=== PATIENT | female | born 1975 | race Caucasian/White ===

== ENCOUNTER 2017-07-22 12:44 | Inpatient (IN) | payer OTHER ==
[~2017-07-22] VITALS: Ht 157.5 cm; Wt 78.6 kg
[2017-07-22 14:24] LABS: BASOPHIL % 0.7 % (0-2); PLATELET COUNT 310 x10^3mcL (130-400); RED CELL DISTRIBUTION WIDTH 14.1 % (11.5-14.5)
[2017-07-22 14:34] LABS: CARBON DIOXIDE 28.6 mmol/L (21-32); CHLORIDE SERUM 101 mmol/L (98-107); CREATININE SERUM 0.5 mg/dL (0.6-1.0); GFR1 > 60 mL/min; GLUCOSE SERUM 86 mg/dL (74-106); POTASSIUM SERUM 3.6 mmol/L (3.5-5.1); SODIUM SERUM 138 mmol/L (136-145)
[2017-07-22 14:45] LABS: ALBUMIN 3.7 g/dL (3.4-5.0); ALKALINE PHOSPHATASE 78 U/L (46-116); ALT/SGPT 40 U/L (14-59); AMYLASE 38 U/L (25-115); AST/SGOT 28 U/L (15-37); BILIRUBIN TOTAL 0.32 mg/dL (0.20-1.00); HDL CHOLESTEROL 54 mg/dL (40-60); LIPASE 120 IU/L (73-393); T4(THYROXINE) 8.3 ug/dL (4.7-13.3); TOTAL PROTEIN, SERUM 7.5 g/dL (6.4-8.2)
[2017-07-22 14:46] LABS: CHOLESTEROL 236 mg/dL (<200)
[2017-07-22 15:50] LABS: microscopic required? NO
[2017-07-22 16:16] LABS: AMPHETAMINE QUAL UR NONE DETECTED (NEG <=1000)
[2017-07-22 16:21] LABS: urine erythrocyte NEGATIVE (NEGATIVE)
[2017-07-22 17:03] LABS: MAGNESIUM 1.8 mg/dL (1.8-2.4); PHOSPHOROUS 3.6 mg/dL (2.5-4.9)
[2017-07-22 17:04] LABS: CHOLESTEROL/HDL RATIO 4.3
[2017-07-22 17:09] LABS: FREE T4 1.13 ng/dL (0.76-1.46); T4(THYROXINE) 8.2 ug/dL (4.7-13.3)
[2017-07-22 17:11] LABS: T3 TOTAL 1.18 ng/mL
[2017-07-22 17:54] VITALS: BP 126/84
[2017-07-22 17:56] VITALS: Ht 157.5 cm; Wt 78.6 kg
[2017-07-22 19:30] VITALS: BP 114/84
[2017-07-23 05:30] VITALS: BP 105/67
[2017-07-23 06:54] LABS: BASOPHIL % 0.2 % (0-2); PLATELET COUNT 285 x10^3mcL (130-400); RED CELL DISTRIBUTION WIDTH 13.8 % (11.5-14.5)
[2017-07-23 06:58] LABS: CALCIUM 9.5 mg/dL (8.5-10.1); CARBON DIOXIDE 24.3 mmol/L (21-32); CHLORIDE SERUM 102 mmol/L (98-107); CREATININE SERUM 0.6 mg/dL (0.6-1.0); GFR1 > 60 mL/min; GLUCOSE SERUM 160 mg/dL (74-106); MAGNESIUM 1.9 mg/dL (1.8-2.4); PHOSPHOROUS 3.4 mg/dL (2.5-4.9); POTASSIUM SERUM 4.1 mmol/L (3.5-5.1); SODIUM SERUM 136 mmol/L (136-145)
[2017-07-23 07:50] VITALS: BP 108/80
[2017-07-23 09:25] VITALS: BP 144/91
[2017-07-23] MEDS ORDERED: LIPI10 PO (09:35)
[2017-07-23] MEDS ORDERED: ECO81 PO (09:36)
[2017-07-23] MEDS ORDERED: BUS5 PO (09:36)
[2017-07-23 12:37] VITALS: BP 141/80
[2017-07-23 12:53] VITALS: BP 144/91
[2017-07-23] MEDS ORDERED: FLE10 PO (16:08)
[2017-07-23] MEDS ORDERED: ZES5 PO (16:23)
[2017-07-23] MEDS ORDERED: METOPROLOL TART25 M1 PO (16:23)
== END 2017-07-23 16:43 | disposition home or self-care (01) | DRG 203 ==
LOC: ED 12:44 → DU 15:59
PROVIDERS: Emergency Medicine; Family Medicine
DX: M94.0 Chondrocostal junction syndrome [Tietze] (principal); N17.0 Acute kidney failure with tubular necrosis; I50.43 Acute on chronic combined systolic (congestive) and diastolic (congestive) heart failure; Z88.6 Allergy status to analgesic agent; E66.9 Obesity, unspecified; Z88.0 Allergy status to penicillin; Z90.710 Acquired absence of both cervix and uterus; Z68.32 Body mass index [BMI] 32.0-32.9, adult; F41.9 Anxiety disorder, unspecified; E78.5 Hyperlipidemia, unspecified; M62.830 Muscle spasm of back; Z98.51 Tubal ligation status; F17.200 Nicotine dependence, unspecified, uncomplicated; I08.1 Rheumatic disorders of both mitral and tricuspid valves
CPT/HCPCS: 83880; 84439; 85378; 90658; J1100; J1885; J7030; Q0092; Q9967

== ENCOUNTER 2018-05-12 13:24 | Emergency (ER) | payer OTHER ==
[~2018-05-12] VITALS: Ht 160 cm; Wt 85.7 kg
[~2018-05-12 13:24] MED LIST: BUS5 PO; ECO81 PO; FLE10 PO; LIPI10 PO; METOPROLOL TART25 M1 PO; ZES5 PO
[2018-05-12 13:48] VITALS: Ht 160 cm; Wt 85.7 kg
[2018-05-12 14:51] LABS: BASOPHIL % 0.3 % (0-2); PLATELET COUNT 293 x10^3mcL (130-400)
[2018-05-12 15:12] LABS: CHLORIDE SERUM 100 mmol/L (98-107); CREATININE SERUM 0.5 mg/dL (0.6-1.0); GFR1 > 60 mL/min; GLUCOSE SERUM 101 mg/dL (74-106); SODIUM SERUM 135 mmol/L (136-145)
[2018-05-12 15:21] LABS: ALBUMIN 3.6 g/dL (3.4-5.0); ALKALINE PHOSPHATASE 71 U/L (46-116); ALT/SGPT 45 U/L (14-59); AST/SGOT 26 U/L (15-37); BILIRUBIN TOTAL 0.2 mg/dL (0.20-1.00); TOTAL PROTEIN, SERUM 7.4 g/dL (6.4-8.2)
[2018-05-12 16:30] VITALS: BP 139/90
== END 2018-05-12 16:30 | disposition home or self-care (01) ==
LOC: ED 13:24
DX: M54.6 Pain in thoracic spine (principal); R07.89 Other chest pain; I10 Essential (primary) hypertension; Z88.0 Allergy status to penicillin; Z88.5 Allergy status to narcotic agent
CPT/HCPCS: 83880; J1885; Q0092